=== PATIENT | female | born 1990 | race Caucasian/White ===

== ENCOUNTER 2017-05-30 21:43 | Emergency (ER) | payer OTHER ==
[~2017-05-30] VITALS: Ht 162.6 cm; Wt 77.1 kg
[~2017-05-30 21:43] MED LIST: AMOXIL500 MG PO; LOESTRIN FE 1-1 EACH PO; NAPROSYN500 M1 PO; ORPHENADRINE C100 MG PO; ORTHO TRI-CYCLE1 TA2 PO; REGLAN10 MG PO; ZITHROMAX Z-PA250 M1 PO; ZOFRAN4 M1 PO; ZOFRAN4 M1 SL
[2017-05-30 22:20] VITALS: BP 151/94
[2017-05-31] MEDS ORDERED: ATIVAN0.5 M1 PO (01:06)
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
== END 2017-05-31 01:19 ==
LOC: ERH 21:43
DX: F41.0 Panic disorder [episodic paroxysmal anxiety] (principal)